=== PATIENT | female | born 1985 | race Caucasian/White ===

== ENCOUNTER 2016-09-01 09:23 | Emergency (ER) | payer OTHER ==
[~2016-09-01 09:23] MED LIST: DEXT30TA2 PO; LEVO50TA PO; LINA145C PO; OXYC-250 PO; QUET25TA5 PO; QUET50TA5 PO; TIZA4CAP3 PO
[2016-09-01 10:06] LABS: BASO # 0.1 x10^3/uL (0.0-0.2); BASO % 1 % (0-3); EOS # 0.5 x10^3/uL (0.0-0.7); EOS % 8 % (0-3); HEMATOCRIT 44.2 % (36.0-47.0); HEMOGLOBIN 14.8 g/dL (12.0-15.5); LYMPH % 31 % (24-48); MEAN CORPUSCULAR HEMOGLOBIN 32 pg (25-35); MEAN CORPUSCULAR HGB CONC 34 g/dL (31-37); MEAN CORPUSCULAR VOLUME 95 fL (79-100); MONO # 0.3 x10^3/uL (0.0-1.1); MONO % 5 % (0-9); NEUT # 3.4 x10^3uL (1.8-7.7); NEUT % 55 % (31-73); PLATELET COUNT 284 x10^3/uL (140-400); RED BLOOD COUNT 4.64 x10^6/uL (3.50-5.40); RED CELL DISTRIBUTION WIDTH 13.1 % (11.5-14.5); WHITE BLOOD COUNT 6.3 x10^3/uL (4.0-11.0)
--- NOTE | 2016-09-01 10:12 | EKG ---
[address] [address] Test Date: 2016-09-01 Test Time: 10:11:23 Pat Name: STEPH NICHOLSON Department: Room: Gender: F Supplier Specialist: OLAMIDE : 1985 Requested By: FELIX PINZON Order Number: [id number] Reading MD: Eric Kearney Measurements Intervals [place] Rate: 75 P: 0 SD: 154 QRS: 71 QRSD: 78 T: 63 QT: 366 QTc: 411 Interpretive Statements SINUS RHYTHM Electronically Signed On 09-06-2016 15:06:10 CDT by Eric Kearney
--- NOTE | 2016-09-01 10:16 | PHYS DOC ---
General Chief Complaint: OTHER COMPLAINTS Stated Complaint: NUMBNESS IN LEFT SIFE OF FACE AND ARM Time Seen by MD: 09:33 Source: patient Exam Limitations: no limitations Problems: History of Present Illness Initial Comments Pt is 30/F to ED with mom c/o left face/body numbness. Pt states she awoke this am unable to feel her left face or body. Pt also states she has left side weakness, although pt observed ambulating into ED and to/from bathroom once registered with normal gait and no apparent weakness. She uses her LUE and has full face expressions, denies fever/chills/new meds/ neck stiffness. No ROBIN/trauma, with deliberate muscle testing pt essentially zero strength (very questionable pt effort) although she physically exhibits no neurodeficit ambulating and when not consciously observed. Denies cp/sob. ED VS: 98, 90, 14, 101/74, 98% RA PCP Dr Samuel Timing/Duration: 1-3 hours Severity: severe Modifying Factors: worse with movement, improves with rest Associated Symptoms: weakness, other Allergies: Coded Allergies: amphetamine (Verified Allergy, Severe, Hives, 05/11/15) dextroamphetamine (Verified Allergy, Severe, Hives, 05/11/15) shellfish derived (Verified Allergy, Severe, Swelling, 05/11/15) tramadol (Verified Allergy, Severe, 05/11/15) mushroom (Verified Allergy, Intermediate, Itching, 05/11/15) Past Medical History Medical History: other (anemia, RA, liver dz, reddy's, migraines, tachycardia, reynaud's, TBI w/hemorrhage, ADD) Surgical History: noncontributory Social History Smoker: cigarettes Alcohol: occasionally Drugs: none Review of Systems Constitutional: denies chills, denies diaphoresis, denies fever, malaise weakness EENTM: denies eye pain, blurred visiondenies ear pain, denies ear discharge, denies nose pain, denies nose congestion, denies throat pain, denies throat swelling, denies mouth pain, denies mouth swelling Respiratory: denies cough, denies shortness of breath, denies wheezing Cardiovascular: denies chest pain, denies palpitations, denies syncope Gastrointestinal: see HPI abdominal pain (Crohn's, takes dicyclomine) Genitourinary: denies dysuria, denies frequency, denies hematuria Musculoskeletal: denies back pain, denies joint swelling, denies neck pain Psychiatric/Neurological: see HPI Hematologic/Lymphatic: denies blood clots, denies easy bleeding, denies easy bruising Physical Exam General Appearance: no apparent distress, thin Eyes: bilateral eye EOMI, bilateral eye PERRL, bilateral eye normal inspection Ear, Nose, Throat: hearing grossly normal, normal ENT inspection, normal pharynx Neck: non-tender, supple Respiratory: normal breath sounds, no respiratory distress Cardiovascular: normal peripheral pulses, regular rate, rhythm Gastrointestinal: non tender, soft Back: no CVA tenderness, no vertebral tenderness Extremities: non-tender, normal inspection Neurologic/Psychiatric: alert, normal mood/affect, oriented x 3, other ( objectively I see no motor deficits, pt doesn't put forth effort with specific mm testing. Subjective decreased sensory left side.) Orders, Labs, Meds EKG: NSR 75 bpm, no STEMI Chest AP: no acute cardiopulmonary process CT Head WO: no acute abnl Labs/urine studies reassuring. 11:11: pt still c/o L-side symptoms. I called and discussed pt with Dr Saba Neurology. He directed that pt follow up with him today 3:45pm in his office. Pt/family are agreeable. Departure Time of Disposition: 11:13 Disposition: 01 HOME, SELF-CARE Diagnosis: skin sensation disturbance, left side weakness Condition: STABLE Patient Instructions: Weakness, [id number] Additional Instructions: Rest, no strenuous activity. Aggressive hydration with gatorade, water. Follow up today 3:[address] Saba, Neurology. (ED staff will provide address /contact information). Return to ED with new or changing symptoms. FELIX PINZON DO Sep 01, 2016 10:16
[2016-09-01 10:17] LABS: ALBUMIN 4.2 g/dL (3.4-5.0); ALBUMIN/GLOBULIN RATIO 1.1 (1.0-1.7); C REACTIVE PROTEIN 0.5 mg/L (0-3.3); CALCIUM 8.9 mg/dL (8.5-10.1); GFR 65.6; POTASSIUM 4.2 mmol/L (3.5-5.1); TOTAL BILIRUBIN 0.8 mg/dL (0.2-1.0)
[2016-09-01 10:21] LABS: BARBITURATES NEG (NEG); BENZODIAZEPINES NEG (NEG); CANNABINOIDS NEG (NEG); COCAINE NEG (NEG); METHADONE NEG (NEG); OPIATES NEG (NEG); PHENCYCLIDINE NEG (NEG)
[2016-09-01 10:22] LABS: AMPHETAMINE/METHAMPHETAMINE POS (NEG)
[2016-09-01 10:26] LABS: BILIRUBIN,URINE NEG (NEG); CLARITY,URINE HAZY; COLOR,URINE AMBER; GLUCOSE,URINE NEG (NEG)
[2016-09-01 10:27] LABS: BACTERIA,URINE FEW /HPF (0-FEW); NITRITE,URINE NEG (NEG); RBC,URINE 0 /HPF (0-2); SQUAMOUS EPITHELIAL CELL,UR MANY /LPF; UROBILINOGEN,URINE 1 mg/dL (0.2 mg/dL); WBC,URINE RARE /HPF (0-4)
--- NOTE | 2016-09-01 10:40 | RAD ---
CT of the head without contrast, 09/01/2016: History: Left-sided facial and body numbness Comparison is made to a study from 09/24/2010. The ventricles are within normal limits in size. There is no shift of the midline structures. There is no evidence of acute intracranial hemorrhage or mass effect. IMPRESSION: No acute intracranial abnormality is detected. PQRS Compliance Statement: One or more of the following individualized dose reduction techniques were utilized for this examination: 1. Automated exposure control 2. Adjustment of the mA and/or kV according to patient size 3. Use of iterative reconstruction technique
--- NOTE | 2016-09-01 10:45 | RAD ---
Portable chest, 09/01/2016: History: Left-sided numbness The heart size and pulmonary vascularity are normal. The lungs are clear. There is no evidence of pleural fluid. There is a metallic plate with screws transfixing an old healed left clavicular fracture. There are old healed rib fractures posteriorly on the right. IMPRESSION: No acute cardiopulmonary abnormality is detected.
[2016-09-01 11:30] VITALS: BP 115/76
== END 2016-09-01 11:35 | disposition home or self-care (01) ==
LOC: ER 09:32
DX: R20.9 Unspecified disturbances of skin sensation (principal); R53.1 Weakness; M19.90 Unspecified osteoarthritis, unspecified site; G43.909 Migraine, unspecified, not intractable, without status migrainosus; F98.8 Other specified behavioral and emotional disorders with onset usually occurring in childhood and adolescence; F17.210 Nicotine dependence, cigarettes, uncomplicated; Z86.2 Personal history of diseases of the blood and blood-forming organs and certain disorders involving the immune mechanism; Z87.820 Personal history of traumatic brain injury; Z91.013 Allergy to seafood; Z88.8 Allergy status to other drugs, medicaments and biological substances; Z91.018 Allergy to other foods
CPT/HCPCS: 36415; 70450; 71010; 80053; 80305; 80320; 81001; 82550; 84484; 85027; 85379; 86140; 93005; G0480; G0481; 99285-25

== ENCOUNTER 2021-08-03 13:15 | Emergency (ER) | payer OTHER ==
[~2021-08-03] VITALS: Ht 152.4 cm; Wt 52.2 kg
[~2021-08-03 13:15] MED LIST changes: -OXYC-250 PO; +OXYC1TAB22 PO
[2021-08-03 13:29] VITALS: BP 119/65
--- NOTE | 2021-08-03 13:40 | PHYS DOC ---
Past History Past Medical History: Anemia, Fibromyalgia, Liver Disease, Migraines, Other Additional Past Medical Histor: Chrons, Chronic Pain Syndrome Past Surgical History: Cholecystectomy, , Hysterectomy, Other Alcohol Use: Occasionally Drug Use: None General Adult EDM: Chief Complaint: PELVIC PAIN HPI: HPI: 35-year-old female presents with dysuria and pelvic pain. Since yesterday, the patient is some difficulty urinating. She states it feels like she is trying to urinate sand. She has a feeling of urgency but little output. The pelvic pain is a pressure sensation. She denies any vaginal discharge or bleeding. She states this does not feel like UTI she has had in the past. She has no history of kidney stones. Denies fever or chills. Review of Systems: Review of Systems: Constitutional: Denies fever or chills Eyes: Denies change in visual acuity HENT: Denies nasal congestion or sore throat Respiratory: Denies cough or shortness of breath Cardiovascular: Denies chest pain or edema GI: Denies abdominal pain, nausea, vomiting, bloody stools or diarrhea : Dysuria, urinary retention, urinary urgency Musculoskeletal: Denies back pain or joint pain Integument: Denies rash Neurologic: Denies headache, focal weakness or sensory changes Endocrine: Denies polyuria or polydipsia Lymphatic: Denies swollen glands Psychiatric: Denies depression or anxiety Allergies: Allergies: Allergies Coded Allergies Type Severity Reaction Last Updated Verified amphetamine Allergy Severe Hives 05/11/15 Yes dextroamphetamine Allergy Severe Hives 05/11/15 Yes shellfish derived Allergy Severe Swelling 05/11/15 Yes tramadol Allergy Severe 05/11/15 Yes mushroom Allergy Intermediate Itching 05/11/15 Yes Physical Exam: PE: Constitutional: Well developed, well nourished, no acute distress, non-toxic appearance. [] HENT: Normocephalic, atraumatic, bilateral external ears normal, oropharynx moist, no oral exudates, nose normal. [] Eyes: PERRLA, EOMI, conjunctiva normal, no discharge. [] Neck: Normal range of motion, no tenderness, supple, no stridor. [] Cardiovascular: Heart rate regular rhythm, no murmur [] Lungs & Thorax: Bilateral breath sounds clear to auscultation [] Abdomen: Bowel sounds normal, soft, mild suprapubic tenderness, no masses, no pulsatile masses. [] Skin: Warm, dry, no erythema, no rash. [] Back: No tenderness, no CVA tenderness. [] Extremities: No tenderness, no cyanosis, no clubbing, ROM intact, no edema. [] Neurologic: Alert and oriented X 3, normal motor function, normal sensory function, no focal deficits noted. [] Psychologic: Affect normal, judgement normal, mood normal. [] Current Patient Data: Vital Signs: Vital Signs Date Time Temp Pulse Resp B/P (MAP) Pulse Ox O2 Delivery O2 Flow Rate FiO2 08/03/21 13:29 98.0 84 16 119/65 (83) 98 Room Air EKG: EKG: [] Radiology/Procedures: Radiology/Procedures: [] Impressions: XR ABDOMEN 1V History: Reason: constipation, lower abdominal pain / Spl. Instructions: / History: Technique: Supine view the abdomen. Comparison: None. Findings: Mild small bowel gas. Air and stool throughout the colon. Moderate distal colonic stool burden. Surgical clips right upper quadrant. Impression: 1. Nonobstructed bowel gas pattern. 2. Moderate distal colonic stool burden. Electronically signed by: Lia Meehan DO (08/03/2021 2:11 PM) [id number] DICTATED AND SIGNED BY: LIA MEEHAN DO DATE: 08/03/21 141 CC: TYRESE JOHNSON DO; JEAN PIERRE SOSA ~ Heart Score: C/O Chest Pain: N/A Risk Factors: Risk Factors: DM, Current or recent (<one month) smoker, HTN, HLP, family history of CAD, obesity. Risk Scores: Score 0 - 3: 2.5% MACE over next 6 weeks - Discharge Home Score 4 - 6: 20.3% MACE over next 6 weeks - Admit for Clinical Observation Score 7 - 10: 72.7% MACE over next 6 weeks - Early Invasive Strategies Course & Med Decision Making: Course & Med Decision Making Pertinent Labs and Imaging studies reviewed. (See chart for details) The patient's labs are unremarkable. She is not . Her urinalysis is significant for UTI. I will give her a gram of Rocephin in the emergency room and discharge her with Keflex. The patient's KUB also shows moderate constipation. I have advised she increase her bowel regimen or do a bowel cleanout. She is stable for discharge at this time. [] Dragon Disclaimer: Dragon Disclaimer: This electronic medical record was generated, in whole or in part, using a voice recognition dictation system. Departure Departure: Impression: Primary Impression: UTI (urinary tract infection) Qualified Codes: N30.01 - Acute cystitis with hematuria Additional Impression: Constipation Disposition: HOME / SELF CARE / HOMELESS Condition: STABLE Referrals: JEAN PIERRE SOSA (PCP) Patient Instructions: Constipation, Adult, [id number], Urinary Tract Infection, [id number] Scripts Cephalexin (CEPHALEXIN) 500 Mg Tablet 1 TAB PO TID for UTI for 5 Days, #15 TAB Prov: TYRESE JOHNSON DO 08/03/21 TYRSEE JOHNSON DO Aug 03, 2021 13:40
[2021-08-03] MEDS ORDERED: IV NORMAL SALINE 1,000ML 1,000 ML IV ONE (13:45)
--- NOTE | 2021-08-03 14:13 | RAD ---
XR ABDOMEN 1V History: Reason: constipation, lower abdominal pain / Spl. Instructions: / History: Technique: Supine view the abdomen. Comparison: None. Findings: Mild small bowel gas. Air and stool throughout the colon. Moderate distal colonic stool burden. Surgi maria g clips right upper quadrant. Impression: 1. Nonobstructed bowel gas pattern. 2. Moderate distal colonic stool burden. Electronically signed by: Hector Adam DO (08/03/2021 2:11 PM) [id number]
[2021-08-03 14:17] LABS: BASO # 0.1 x10^3/uL (0.0-0.2); BASO % 1 % (0-3); EOS # 0.4 x10^3/uL (0.0-0.7); EOS % 4 % (0-3); HEMOGLOBIN 12.8 g/dL (12.0-15.5); LYMPH % 18 % (24-48); MEAN CORPUSCULAR HEMOGLOBIN 32 pg (25-35); MEAN CORPUSCULAR HGB CONC 33 g/dL (31-37); MEAN CORPUSCULAR VOLUME 98 fL (79-100); MONO # 0.7 x10^3/uL (0.0-1.1); MONO % 6 % (0-9); NEUT % 71 % (31-73); PLATELET COUNT 249 x10^3/uL (140-400); RED BLOOD COUNT 3.99 x10^6/uL (3.50-5.40); RED CELL DISTRIBUTION WIDTH 12.4 % (11.5-14.5); WHITE BLOOD COUNT 11.3 x10^3/uL (4.0-11.0)
[2021-08-03 14:22] LABS: CALCIUM 8.9 mg/dL (8.5-10.1); CREATININE 0.9 mg/dL (0.6-1.0); GFR 71.7
[2021-08-03 14:27] LABS: ALBUMIN 3.8 g/dL (3.4-5.0); ALBUMIN/GLOBULIN RATIO 1.2 (1.0-1.7); TOTAL BILIRUBIN 0.4 mg/dL (0.2-1.0); TOTAL PROTEIN 7.1 g/dL (6.4-8.2)
[2021-08-03 15:24] LABS: CLARITY,URINE TURBID; COLOR,URINE YELLOW; GLUCOSE,URINE NEG (NEG)
[2021-08-03 15:25] LABS: BACTERIA,URINE MOD /HPF (0-FEW); NITRITE,URINE POS (NEG); RBC,URINE 20-40 /HPF (0-2); SQUAMOUS EPITHELIAL CELL,UR FEW /LPF; WBC,URINE >40 /HPF (0-4)
[2021-08-03] MEDS ORDERED: CEPH500T PO (15:40)
[2021-08-03] MEDS ORDERED: IV NORMAL SALINE 50ML 50 ML ONE (15:43)
[2021-08-03] MEDS ORDERED: cefTRIAXone SODIUM 1 GM VIAL ONE (15:44)
== END 2021-08-03 16:27 | disposition home or self-care (01) ==
LOC: ER 13:15
DX: N30.01 Acute cystitis with hematuria (principal); K59.00 Constipation, unspecified; M79.7 Fibromyalgia; G43.909 Migraine, unspecified, not intractable, without status migrainosus; Z86.2 Personal history of diseases of the blood and blood-forming organs and certain disorders involving the immune mechanism; Z90.49 Acquired absence of other specified parts of digestive tract; Z98.890 Other specified postprocedural states; Z90.710 Acquired absence of both cervix and uterus; Z88.8 Allergy status to other drugs, medicaments and biological substances; Z91.018 Allergy to other foods; Z91.013 Allergy to seafood
CPT/HCPCS: 36415; 74018; 80053; 81001; 81025; 85025; 87077; 87086; 87186; 96361; 96365; 99284; J0696; J7030